=== PATIENT | female | born 1965 | race Caucasian/White ===

== ENCOUNTER → 2018-08-30 | Outpatient (CLI) | payer OTHER ==
--- NOTE | 2018-08-30 17:48 | US ---
EXAMINATION TYPE: US venous doppler duplex LE RT DATE OF EXAM: 08/30/2018 5:05 PM COMPARISON: NONE CLINICAL HISTORY: M79.661 pain in right lower leg.. SIDE PERFORMED: TECHNIQUE: The lower extremity deep venous system is examined utilizing real time linear array sonog bassem with graded compression, doppler sonography and color-flow sonography. VESSELS IMAGED: External Iliac Vein (EIV) Common Femoral Vein Deep Femoral Vein Greater Saphenous Vein * Femoral Vein Popliteal Vein Small Saphenous Vein * Proximal Calf Veins (* superficial vessels) Right Leg: Negative for DVT IMPRESSION: Normal right leg duplex venous sonogram.
== END ==
LOC: RADUSMAIN 17:03
PROVIDERS: ATTEND Internal Medicine
DX: M79.661 Pain in right lower leg (principal)

== ENCOUNTER → 2019-07-11 | Outpatient (CLI) | payer OTHER ==
[2019-07-11 08:16] LABS: Basophils # (A) 0.1 k/uL (0-0.2); Basophils % (A) 1 %; Eosinophils # (A) 0.2 k/uL (0-0.7); Eosinophils % (A) 3 %; HGB 13.6 gm/dL (11.4-16.0); Lymphocytes # (A) 2.5 k/uL (1.0-4.8); Lymphocytes % (A) 38 %; MCH 33.7 pg (25.0-35.0); Mean Platelet Volume 6.1; Monocytes # (A) 0.3 k/uL (0-1.0); Monocytes % (A) 5 %; Neutrophils # (A) 3.4 k/uL (1.3-7.7); Neutrophils % (A) 51 %; Platelet Count 270 k/uL (150-450); RBC 4.03 m/uL (3.80-5.40); RDW 12.2 % (11.5-15.5); WBC 6.6 k/uL (3.8-10.6)
--- NOTE | 2019-07-11 08:20 | CT ---
EXAMINATION TYPE: CT soft tissue neck w con DATE OF EXAM: 07/11/2019 COMPARISON: None HISTORY: 53-year-old female Right sided (under jaw) neck swelling/mass TECHNIQUE: Contiguous axial scanning of the soft tissues of the neck performed with IV Contrast, denisse ent injected with 100 mL of Isovue 300. Coronal/sagittal reconstructions performed. CT DLP: 499.9 mGycm Automated exposure control for dose reduction was used. FINDINGS: Prominent fluid distention of the visualized thoracic esophagus. Mild 4.0 cm aneurysm ascending aorta with conventional arch was a branching anatomy. The thyroid and parotid glands appear satisfactory. Palpable marker has been placed along the right submandibular region. The right subinsular gland dire ctly underlies the palpable marker and while it is slightly smaller than the other side, it is slight ly more hypoechoic with minimal surrounding fat stranding. No discrete enhancing mass is seen. Scattered nonenlarged cervical lymph nodes on both sides of the neck. Slight rightward nasal septal deviation. Visualized paranasal sinuses and mastoid air cells, orbits a nd globes, and visualized intracranial structures show no gross abnormal body. Nasopharynx is clear. There is asymmetric soft tissue lobulation measuring 1.3 cm wide along the left posterior aspect of t he tongue just anterior to the vallecular space, refer to axial image 60 and coronal image 27. The epiglottis and prevertebral soft tissues are within normal limits. The glottic and subglottic structures as well as the tracheal column and visualized upper lungs appea r clear. No osseous destructive process. IMPRESSION: 1. WHILE THE RIGHT SUBMANDIBULAR GLAND IS SLIGHTLY SMALLER THAN THE LEFT, IT IS MORE HYPODENSE AND TH ERE MAY BE MILD ASSOCIATED INFLAMMATION. CORRELATE FOR MILD SIALADENITIS. THE PALPABLE MARKER OVERLIE S THIS REGION. 2. PROMINENT FLUID DISTENTION OF THE VISUALIZED THORACIC ESOPHAGUS. CORRELATE FOR SIGNIFICANT DYSMOTI LITY, SIGNIFICANT GASTROESOPHAGEAL REFLUX DISEASE, ACHALASIA, OR DISTAL OBSTRUCTION. ESOPHAGRAM CAN F URTHER EVALUATE. 3. SOFT TISSUE LOBULATION MEASURING 1.3 CM WIDE ALONG THE LEFT POSTERIOR ASPECT OF THE TONGUE JUST AN TERIOR TO THE VALLECULAR SPACE (AXIAL IMAGE 60 AND CORONAL IMAGE 27). RECOMMEND DIRECT VISUALIZATION TO ENSURE THAT THIS REPRESENTS LINGUAL TONSILLAR HYPERTROPHY RATHER THAN A MORE WORRISOME MUCOSAL SPA CE LESION. 4. MILD ANEURYSM ASCENDING AORTA 4.0 CM.
[2019-07-11 08:31] LABS: ALT 14 U/L (9-52); AST 19 U/L (14-36); African American GFR (CKD) >90 (>60 ml/min/1.73 sqM); Albumin 3.8 g/dL (3.5-5.0); Alkaline Phosphatase 68 U/L (38-126); Anion Gap 5 mmol/L; Blood Urea Nitrogen 21 mg/dL (7-17); Calcium 9.4 mg/dL (8.4-10.2); Carbon Dioxide 32 mmol/L (22-30); Chloride 101 mmol/L (98-107); Cholesterol 176 mg/dL (<200); Glucose 82 mg/dL (74-99); HDL Cholesterol 72 mg/dL (40-60); LDL Cholesterol,Calculated 88 mg/dL (0-99); Non-African American GFR(CKD) 82 (>60 ml/min/1.73 sqM); Potassium 4.7 mmol/L (3.5-5.1); Sodium 138 mmol/L (137-145); Total Bilirubin 1.7 mg/dL (0.2-1.3); Total Protein 6.7 g/dL (6.3-8.2); Triglycerides 80 mg/dL (<150)
== END | disposition home or self-care (01) ==
LOC: RADCTMAIN 07:18
PROVIDERS: ATTEND Internal Medicine
DX: R22.1 Localized swelling, mass and lump, neck (principal); I10 Essential (primary) hypertension; K21.9 Gastro-esophageal reflux disease without esophagitis; R53.83 Other fatigue
CPT/HCPCS: 80061; 80053; 84443; 85025; 70491; 36415; Q9967

== ENCOUNTER → 2022-05-09 | Outpatient (CLI) | payer OTHER ==
--- NOTE | 2022-05-10 04:06 | MR ---
EXAMINATION TYPE: MR knee RT wo con DATE OF EXAM: 05/09/2022 COMPARISON: None HISTORY: RIGHT KNEE PAIN Multiplanar multiecho imaging of the right knee performed with no contrast. The anterior and posterior cruciate ligaments are intact. There is mild knee joint effusion. There is a 3 x 1.5 cm popliteal cyst. The collateral ligaments are intact. There is horizontal tear in the an terior horn of the lateral meniscus. This extends to the superior surface. There is some mild degener ative signal changes in the medial meniscus. There is small horizontal intrasubstance tear posterior horn of the medial meniscus. The medial and lateral joint spaces are fairly normal. There is spurring of the femoral and tibial condyles. No fracture seen. No focal bone destruction. There is subchondra l edema in the patella. There is patellofemoral joint space narrowing. IMPRESSION: There is moderate osteoarthritic narrowing of the patellofemoral joint with subchondral edema. There are tears of the medial and lateral menisci as above. No evidence of ligamentous tear. Hypertrophic osteoarthritis. Knee joint effusion and popliteal cyst
== END | disposition home or self-care (01) ==
LOC: RADMRIMAIN 19:20
PROVIDERS: ATTEND Orthopaedic Surgery
DX: M17.11 Unilateral primary osteoarthritis, right knee (principal); M23.231 Derangement of other medial meniscus due to old tear or injury, right knee

== ENCOUNTER → 2022-08-27 | Outpatient (CLI) | payer OTHER ==
[2022-08-27 16:37] LABS: Basophils # (A) 0.04 X 10*3/uL (0.00-0.10); Basophils % (A) 0.6 %; Eosinophils # (A) 0.17 X 10*3/uL (0.04-0.35); Eosinophils % (A) 2.6 %; HCT 42.9 % (37.2-46.3); Immature Grans, Automated 0.3 %; Lymphocytes # (A) 3.12 X 10*3/uL (0.90-5.00); Lymphocytes % (A) 48.4 %; MCH 31.8 pg (27.0-32.0); MCHC 32.6 g/dL (32.0-37.0); MCV 97.5 fL (80.0-97.0); Mean Platelet Volume 9.4 fL (9.5-12.2); Monocytes # (A) 0.43 X 10*3/uL (0.20-1.00); Monocytes % (A) 6.7 %; NRBC Per 100 WBC 0 /100 WBCS (0.0-0.0); Neutrophils # (A) 2.66 X 10*3/uL (1.80-7.70); Neutrophils % (A) 41.4 %; Platelet Count 257 X 10*3/uL (140-440); RDW 12.6 % (11.5-14.5); WBC 6.44 X 10*3/uL (4.50-10.00)
[2022-08-27 16:49] LABS: Anion Gap 13.1 mmol/L (10.00-18.00); Carbon Dioxide 25.9 mmol/L (20.0-27.5); Potassium 4.4 mmol/L (3.5-5.5)
== END | disposition home or self-care (01) ==
LOC: LABPAT 11:24
PROVIDERS: ATTEND Orthopaedic Surgery
DX: Z01.812 Encounter for preprocedural laboratory examination (principal); M23.91 Unspecified internal derangement of right knee
CPT/HCPCS: 80051; 85025; 93005

== ENCOUNTER 2022-09-01 15:55 | Day surgery (SDC) | payer OTHER ==
--- NOTE | 2022-09-01 03:01 | HP ---
HISTORY AND PHYSICAL DATE OF SURGERY: 09/01/2022. HISTORY OF PRESENT ILLNESS: Lizeth Roberts is a 57-year-old patient seen with progressive right knee pain. We discussed options for treatment. She elected to proceed with right knee arthroscopy. Consent regarding the procedure was obtained. PAST MEDICAL HISTORY: Hypertension. PAST SURGICAL HISTORY: Noncontributory. DAILY MEDICATIONS: 1. Ibuprofen. 2. Losartan. 3. Vitamins. ALLERGIES: None. SOCIAL HISTORY: She denies current tobacco use. PHYSICAL EVALUATION OF THE RIGHT KNEE: Her range of motion is 0 to 130 degrees. There is a mild effusion present. She is tender along the medial and lateral joint lines. Positive medial Migue's and positive lateral Migue's. Her ligaments are stable. Hip rotation is without pain. Distal neurovascular exam is intact. RADIOGRAPHS: Right knee radiographs revealed some moderate osteoarthritic changes about the patellofemoral joint. Right knee MRI revealed medial and lateral meniscal tears along with effusion. Popliteal cyst present. IMPRESSION: 1. Internal derangement of right knee with medial and lateral meniscal tears. 2. Hypertension. PLAN: Right knee arthroscopy with partial medial/lateral meniscectomy and debridement. MMODL / IJN: [id number] /
[2022-09-01] MEDS ORDERED: LIDOCAINE 1% (10MG/ML) FOR IV START INTRADERMA PRN (16:34)
[2022-09-01] MEDS ORDERED: ONDANSETRON 4 MG/2 ML VIAL IVP ONE (16:34)
[2022-09-01] MEDS ORDERED: HYDROmorphone 0.5 MG/0.5 ML SYRINGE IVP PRN (16:34)
[2022-09-01] MEDS ORDERED: LACTATED RINGERS 1,000 ML IV SCH (16:34)
[2022-09-01] MEDS ORDERED: DEXAMETHASONE SOD PHOSPHATE 4 MG/ML 1 ML VIAL IV ONE (16:34)
[2022-09-01] MEDS ORDERED: MIDAZOLAM 2 MG/2 ML VIAL IVP ONE (16:55)
[2022-09-01] MEDS ORDERED: BUPIVACAINE (PF) 0.25% 30 ML VIAL SQ ONE ×2 (17:09→17:39)
[2022-09-01] MEDS ORDERED: PROPOFOL 10 MG/ML 20 ML VIAL IV ONE (17:11)
[2022-09-01] MEDS ORDERED: fentaNYL (PF) 50 MCG/ML 2 ML AMP ONE (17:11)
[2022-09-01] MEDS ORDERED: LIDOCAINE 2% INJ 20 MG/ML (2 ML VIAL) ONE (17:11)
[2022-09-01] MEDS ORDERED: MIDAZOLAM 2 MG/2 ML VIAL ONE (17:11)
[2022-09-01] MEDS ORDERED: SUCCINYLCHOLINE CHLORIDE 200 MG/10 ML VIAL IV ONE (17:11)
--- NOTE | 2022-09-01 17:53 | P.OP ---
Date of Procedure: 09/01/22 Preoperative Diagnosis: Internal derangement right knee Postoperative Diagnosis: 1. Tear medial and lateral meniscus right knee 2. 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 Reactive synovitis medial, lateral and suprapatellar compartments right knee Procedure(s) Performed: 1. Arthroscopic partial medial and lateral meniscectomy right knee 2. Arthroscopic chondroplasty lateral femoral condyle right knee 3. Arthroscopic partial synovectomy medial, lateral and suprapatellar compartments right knee Anesthesia: JEANA, local Surgeon: Sreedhar Knutson Estimated Blood Loss (ml): 10 Pathology: none sent Condition: stable Disposition: PACU Indications for Procedure: 57-year-old patient seen with progressive right knee pain. After having treatment options discussed, she elected to proceed with arthroscopy. Operative Findings: See description of procedure Description of Procedure: Patient was taken to the operative suite. Patient underwent a general anesthetic by the department of anesthesia. Patient was given preoperative antibiotics. The right lower extremity was placed in a well-padded arthroscopic leg waite. The right leg was prepped and draped in the normal sterile orthopedic fashion. A lateral parapatellar and suprapatellar incision was made. Trochars were inserted. Arthroscopy was initiated. Suprapatellar pouch revealed diffuse thick reactive synovitis. The patellofemoral joint appeared to articulate congruently. There was grade 1 chondral malacia of the patella without significant osteochondral tears.. The scope was guided into the medial gutter. No loose bodies or plica were identified. The scope was then guided into the medial compartment. A medial parapatellar incision was made. Trocar inserted followed by probe. There was a radial tear posterior horn medial meniscus. There were grade 1 chondromalacia changes of the tibial plateau without osteochondral tears. There was some thick reactive synovitis anteriorly. I performed a partial medial meniscectomy getting down to stable meniscal tissue. I performed a partial synovectomy decompressing the reactive synovitis. The residual meniscus was stable. There was good decompression of the synovitis. Scope and probe were then guided into the intercondylar notch. Cruciates were identified, probed and found to be stable. The scope and probe were then guided into lateral compartment. There was a radial tear along the anterior horn and mid bodies lateral meniscus. There was an area of grade 2 chondromalacia lateral femoral condyle with a large osteochondral flap tear present. Was thick reactive synovitis anteriorly. I performed a partial lateral meniscectomy getting down to stable meniscal tissue. I performed a chondroplasty of lateral femoral condyle getting down to stable osteochondral tissue. I performed a partial synovectomy decompressing the reactive synovitis. The residual meniscus was stable. The residual osteochondral surface was stable. There was good decompression of the synovitis. The scope was in guided back into the suprapatellar compartment. I introduced a motorized shaver into the suprapatellar compartment. I debrided some piecemeal fragments of meniscus I encountered. I performed a partial synovectomy. The shaver was removed. There appeared be good decompression of the synovitis. I now took one more look around the entire knee, no residual debris. Instruments were now removed from the joint. The joint was infiltrated with .25% Marcaine. Steri-Strips were applied to the portal sites. Sterile dressings were applied. The patient was placed into a GENIE hose. No tourniquet was utilized. The patient was awakened, transferred to a bed and taken to recovery stable satisfactory condition.
[2022-09-01 18:01] VITALS: TEMP 97
[2022-09-01] MEDS ORDERED: KETOROLAC 15 MG/ML 1 ML VIAL IVP ONE (18:08)
[2022-09-01] MEDS ORDERED: HYDROcodone/APAP 5-325MG 1 EACH TAB ONE (18:36)
[2022-09-01] MEDS ORDERED: HYDROcodone/APAP 5-325MG 1 EACH TAB PO ONE (18:38)
[2022-09-01 19:06] VITALS: BP 134/70; PULSE 72; RESP 14
== END 2022-09-01 19:12 | disposition home or self-care (01) ==
LOC: OR 15:55
PROVIDERS: ATTEND Orthopaedic Surgery
DX: S83.281A Other tear of lateral meniscus, current injury, right knee, initial encounter (principal); S83.241A Other tear of medial meniscus, current injury, right knee, initial encounter; M94.261 Chondromalacia, right knee; M65.9 Synovitis and tenosynovitis, unspecified; I10 Essential (primary) hypertension; K21.9 Gastro-esophageal reflux disease without esophagitis; Z79.1 Long term (current) use of non-steroidal anti-inflammatories (NSAID); Z79.899 Other long term (current) drug therapy; X58.XXXA Exposure to other specified factors, initial encounter
CPT/HCPCS: 29880; J2250; J0330; J1100; J0690; J2405; J3010; J1885; J2704; J1170; J2001

== ENCOUNTER → 2023-12-11 | Outpatient (CLI) | payer OTHER ==
--- NOTE | 2023-12-11 12:55 | MR ---
EXAMINATION TYPE: MR knee RT wo con DATE OF EXAM: 12/11/2023 COMPARISON: 05/09/2022 HISTORY: 58-year-old female M2 5.561, Right knee pain. TECHNIQUE: Multiplanar, multisequence imaging of the right knee is performed without IV contrast. FINDINGS: The ACL, PCL, and MCL are intact. There is some inhomogeneous signal along the popliteus tendon. LCL complex are otherwise intact. There is redemonstration of a complex, multidirectional tear involving the body of the lateral menisc us. Small superior and inferior surface tears are now present within the posterior horn of the latera l meniscus. Multilocular ganglion cyst located near the posterior root zone measuring 2.2 x 3.4 cm. Mildly irregular cartilage loss throughout the weightbearing aspect of the lateral compartment with m arginal spurring. Inhomogeneous intrasubstance signal and irregularity of the body of the medial meniscus more focally extending to the junction with the posterior root. Medial compartment articular cartilage volume is m aintained. There is full-thickness loss of articular cartilage along the lateral patellar and trochlear facets w ith degenerative subchondral signal change including small cyst formation. Lateral patellar tilt and translation. Extensor mechanism is intact. No significant joint effusion. There is a small Puckett's cyst measuring 4.3 x 1.8 cm. Normal popliteal artery anatomy. Mild generalized muscle atrophy. No suspicious bone marrow replaceme nt. IMPRESSION: 1. Large complex tear involving the body of the lateral meniscus redemonstrated. The posterior horn o f the lateral meniscus now shows small superior and inferior surface tears. There is a multilocular, probable parameniscal cyst measuring 3.4 x 2.2 cm which is also new just adjacent. 3. Degenerative signal within the body of the medial meniscus with small tear at the junction of the posterior horn and body. 4. Severe, bone on bone osteoarthritic change along the lateral facets of the patellofemoral compartm ent 5. Small 4.3 cm Puckett's cyst.
== END | disposition home or self-care (01) ==
LOC: RADMRIMAIN 11:13
PROVIDERS: ATTEND Orthopaedic Surgery
DX: S83.281A Other tear of lateral meniscus, current injury, right knee, initial encounter (principal); M17.11 Unilateral primary osteoarthritis, right knee